=== PATIENT | female | born 1980 | race Caucasian/White ===

== ENCOUNTER 2016-12-19 08:26 | Emergency (ER) | payer OTHER ==
[~2016-12-19] VITALS: Ht 157.5 cm; Wt 83.5 kg
[~2016-12-19 08:26] MED LIST: ESOM20CA; VIT1TABL85; ZOC20
[2016-12-19 08:28] VITALS: Ht 157.5 cm; Wt 83.5 kg
[2016-12-19] MEDS ORDERED: SOD CHLORIDE 0.9% 1,000 ML IV STA (09:00)
[2016-12-19] MEDS ORDERED: morphine 4 MG/ML VIAL IV STA ×2 (09:00→10:24)
[2016-12-19] MEDS ORDERED: ONDANSETRON 4 MG INJ IV STA (09:00)
[2016-12-19 09:23] LABS: BASOPHILS % 0.2 % (0.0-2.0); EOSINOPHILS # 0.1 10^3/ul (0.0-0.5); EOSINOPHILS % 1.3 % (0.0-7.0); HEMATOCRIT 43.6 % (37.0-47.0); HEMOGLOBIN 14.9 g/dl (12.0-16.0); LYMPHOCYTES # 1.6 10^3/ul (0.8-2.9); LYMPHOCYTES % 25.1 % (15.0-51.0); MEAN CORPUSCULAR HEMOGLOBIN 32.2 pg (29.0-33.0); MEAN CORPUSCULAR HGB CONC 34.1 g/dl (32.0-37.0); MEAN CORPUSCULAR VOLUME 94.3 fl (82.0-101.0); MEAN PLATELET VOLUME 9.2 fl (7.4-10.4); MONOCYTE # 0.6 10^3/ul (0.3-0.9); MONOCYTES % 8.8 % (0.0-11.0); NEUTROPHIL # 4.2 10^3/ul (1.6-7.5); NEUTROPHILS % 64.6 % (39.0-77.0); PLATELET COUNT 182 10^3/UL (140-440); RED BLOOD COUNT 4.62 10^6/ul (4.20-5.40); RED CELL DISTRIBUTION WIDTH 12.9 % (11.5-14.5); UNCORRECTED WBC 6.4 10^3/ul (4.8-10.8); WHITE BLOOD COUNT 6.4 10^3/ul (4.8-10.8)
[2016-12-19 09:28] LABS: ALBUMIN 4.4 g/dl (3.3-4.9)
[2016-12-19 09:29] LABS: POTASSIUM 4.3 mmol/L (3.5-5.1)
[2016-12-19 09:30] LABS: CONDITION 1
[2016-12-19 09:31] LABS: ALBUMIN/GLOBULIN RATIO 1.1; BILIRUBIN,INDIRECT 0.1 mg/dl (0-1.1); BILIRUBIN,TOTAL 0.1 mg/dl (0.2-1.3); CALCIUM 9.1 mg/dl (8.4-10.2); CREATININE 0.52 mg/dl (0.44-1.00); TOTAL PROTEIN 8.4 g/dl (6.1-8.1)
[2016-12-19 09:43] LABS: ADD UMIC NO; URINE BILIRUBIN (Dip) NEGATIVE (NEGATIVE); URINE BLOOD (Dip) NEGATIVE (NEGATIVE); URINE COLOR YELLOW (YELLOW); URINE GLUCOSE (Dip) NEGATIVE (NEGATIVE); URINE KETONES (Dip) NEGATIVE (NEGATIVE); URINE LEUKOCYTE ESTERASE (Dip) NEGATIVE (NEGATIVE); URINE NITRITE (Dip) NEGATIVE (NEGATIVE); URINE TOTAL PROTEIN (Dip) NEGATIVE (NEGATIVE); URINE UROBILINOGEN (Dip) 0.2 E.U./dL (0.1-1.0)
--- NOTE | 2016-12-19 10:11 | RADRPT ---
PROCEDURE: CT Abdomen and Pelvis without contrast. CLINICAL INDICATION: Abdominal pain. TECHNIQUE: CT scan of the abdomen and pelvis without contrast was performed on a multidetector hig h-resolution CT scanner. The patient was scanned without intravenous contrast. Coronal and sagittal reformatted images were obtained from the axial source images. Images were reviewed on a high-resol [employer] PACS workstation. The total exam CTDI equals 22.1 mGy and the total exam DLP equals 1317.41 mG y-cm. One or the following dose reduction techniques were used: -Automated exposure control. -Adjustment of the mA and/or KV according to patient's size. -Use of iterative reconstruction technique. COMPARISON: None. FINDINGS: Note: The overall sensitivity of the study is lower by the fact that oral and intravenous contrast was not utilized. Lung Bases: Unremarkable. GI:. Unremarkable. Liver: Unremarkable. Gallbladder: Unremarkable. Pancreas: Unremarkable. Spleen: Unremarkablel Adrenals: Unremarkable. Kidneys: There is no evidence of nephrolithiasis, ureteral lithiasis or obstructive uropathy. Bladder: Unremarkable. Pelvic Organs: Unremarkable. Skeleton: Normal for age. Other: A normal-appearing appendix is visualized. IMPRESSION: 1. Short segment of the circumferentially thickened proximal transverse colon with very subtle stran ding in the adjacent fat with diverticula. This is suggestive of very mild acute diverticulitis. 2. No evidence of nephrolithiasis, ureteral lithiasis or obstructive uropathy. 3. Normal appearing appendix is visualized. Note: A call report was made to Sandra Coffey Pa-c on 12/19/2016 10:11:02 AM. RPTAT: [facility] Physician Mor Date Time Electronically viewed and signed by Physician Mor on 12/19/2016 10:11 JH/
[2016-12-19] MEDS ORDERED: TRAM50TA2 PO (10:27)
[2016-12-19] MEDS ORDERED: CIPR500T4 PO (10:27)
[2016-12-19] MEDS ORDERED: METR500T PO (10:27)
--- NOTE | 2016-12-19 11:13 | ERD ---
ER Documentation Chief Complaint Date/Time DATE: 12/19/16 TIME: 11:07 Chief Complaint GENERALIZED ABDOMINAL PAIN, BLOATED AND LOWER BACK PAIN X 5 DAYS HPI 36-year-old female with a past medical history of type 2 diabetes presents to the ED complaining of generalized abdominal pain that started 5 days ago. States that she did have a few episodes of diarrhea that started 5 days ago. States that there was one episode with slight streaks of blood. Reports that she had a few episodes of nonbilious nonbloody vomiting yesterday. Reports that her pain is predominantly in the right and left upper quadrants. Reports that she feels like her stomach is swollen and started to get concerned because it got really big and painful. States that she saw her primary care physician yesterday and was given metronidazole for possible diarrhea due to bacterial etiology. Denies any fever, chills, chest pain, shortness of breath, rashes. Reports that her last menses is on 12/13/16. ROS All systems reviewed and are negative except as per history of present illness. Medications Home Meds Active Scripts Tramadol HCl (Tramadol HCl) 50 Mg Tablet, 50 MG PO Q6 Y for PAIN, #20 TAB Prov:KARI BECKHAM PA-C 12/19/16 Ciprofloxacin Hcl* (Ciprofloxacin Hcl*) 500 Mg Tablet, 500 MG PO BID for 10 Days , TAB Prov:KARI BECKHAM PA-C 12/19/16 Metronidazole* (Flagyl*) 500 Mg Tablet, 500 MG PO TID for 10 Days, TAB Prov:KARI BECKHAM PA-C 12/19/16 Reported Medications Simvastatin (Simvastatin) 20 Mg Tablet 12/29/13 Esomeprazole Mag Trihydrate (Nexium) 20 Mg Capsule. 12/29/13 Vit D3/Folic Acid/B2/B6/B12 (Folgard Tablet) 1 Each Tablet 12/29/13 Allergies Allergies: Coded Allergies: No Known Allergy (Unverified , 12/19/16) PMhx/Soc History of Surgery: No Anesthesia Reaction: No Hx Neurological Disorder: No Hx Respiratory Disorders: No Hx Cardiac Disorders: No Hx Psychiatric Problems: No Hx Miscellaneous Medical Probl: Yes (dm) Hx Alcohol Use: No Hx Substance Use: No Hx Tobacco Use: No Smoking Status: Never smoker Physical Exam Vitals Vital Signs Date Time Temp Pulse Resp B/P Pulse Ox O2 Delivery O2 Flow Rate FiO2 12/19/16 08:28 98.0 98 19 138/87 98 Physical Exam Const: [id number], well-nourished. In no acute distress. Head: Atraumatic, normocephalic Eyes: Normal Conjunctiva without injection. No purulent discharge. ENT: Normal external ear, nose. Moist oropharynx without tonsillar exudates. Non -erythematous pharynx. Uvula midline. No drooling. No trismus. Neck: No cervical midline tenderness. Full range of motion. No meningismus. No cervical lymphadenopathy. No JVD. Resp: Clear to auscultation bilaterally. No wheezing, rhonchi, rales, or crackles. No accessory muscle use. No retractions. Cardio: Regular rate and rhythm. No murmurs, rubs or gallops. Abd: Soft, predominantly tender to palpation of the right and left upper quadrant, bloated/slightly distended with stretch murillo noted on abdomen. Normal bowel sounds. No palpable masses. No rebound tenderness. No guarding. Negative McBurney's point. Negative psoas sign. Negative obturator sign. Skin: No petechiae or rashes Back: No midline tenderness. No CVA tenderness. Ext: No cyanosis, or edema. Neur: Awake and alert. Normal gait. Normal coordination. Psych: Normal Mood and Affect Result Diagram: 12/19/1690112/19/16901 Results 24 hrs Laboratory Tests Test 12/19/16 09:02 Alanine Aminotransferase (ALT/SGPT) 69IU/L Albumin 4.4g/dl Albumin/Globulin Ratio 1.10 Alkaline Phosphatase 81IU/L Anion Gap 19 Aspartate Amino Transf (AST/SGOT) 48IU/L Basophils # 0.010^3/ul Basophils % 0.2% Blood Urea Nitrogen 12mg/dl Calcium Level 9.1mg/dl Carbon Dioxide Level 25mmol/L Chloride Level 106mmol/L Creatinine 0.52mg/dl Direct Bilirubin 0.00mg/dl Eosinophils # 0.110^3/ul Eosinophils % 1.3% Globulin 4.00g/dl Glucose Level 126mg/dl Hematocrit 43.6% Hemoglobin 14.9g/dl Indirect Bilirubin 0.1mg/dl Lipase 67U/L Lymphocytes # 1.610^3/ul Lymphocytes % 25.1% Mean Corpuscular Hemoglobin 32.2pg Mean Corpuscular Hemoglobin Concent 34.1g/dl Mean Corpuscular Volume 94.3fl Mean Platelet Volume 9.2fl Monocytes # 0.610^3/ul Monocytes % 8.8% Neutrophils # 4.210^3/ul Neutrophils % 64.6% Nucleated Red Blood Cells # 0.010^3/ul Nucleated Red Blood Cells % 0.0/100WBC Platelet Count 77329^3/UL Potassium Level 4.3mmol/L Red Blood Count 4.6210^6/ul Red Cell Distribution Width 12.9% Sodium Level 146mmol/L Total Bilirubin 0.1mg/dl Total Protein 8.4g/dl Urine Bilirubin NEGATIVE Urine Clarity CLEAR Urine Color YELLOW Urine Glucose NEGATIVE% Urine Hemoglobin NEGATIVE Urine Ketones NEGATIVE Urine Leukocyte Esterase NEGATIVE Urine Nitrite NEGATIVE Urine Specific Marion >=1.030 Urine Total Protein NEGATIVE Urine Urobilinogen 0.2 E.U./dL Urine pH 5.5 White Blood Count 6.410^3/ul Current Medications Medications (Trade) Dose Ordered Sig/Chastity Route PRN Reason Start Time Stop Time Status Last Admin Dose Admin Sodium Chloride (NS) 1,000 ml @ 1,000 mls/hr Q1H STAT IV 12/19/16 09:00 12/19/16 09:59 DC 12/19/16 09:10 Morphine Sulfate (morphine) 4 mg ONCE STAT IV 12/19/16 09:00 12/19/16 09:01 DC 12/19/16 09:10 Ondansetron HCl (Zofran Inj) 4 mg ONCE STAT IV 12/19/16 09:00 12/19/16 09:01 DC 12/19/16 09:10 Morphine Sulfate (morphine) 4 mg ONCE STAT IV 12/19/16 10:24 12/19/16 10:25 DC 12/19/16 10:32 Procedures/MDM 36-year-old female with no significant past medical history presents the ED complaining of abdominal pain, bloating. Patient is afebrile nontoxic appearing. Patient has normal vital signs. Patient was further worked up with CBC, CMP, lipase, UA, urine , CT of the abdomen and pelvis without contrast. Patient's pain and symptoms have improved after treatment with 8 mg IV morphine, 4 mg IV Zofran, 1 L of normal saline. CBC: No leukocytosis. No e/o of systemic infection. No e/o anemia. CMP: No e/o severe acidosis, alkalosis, renal failure, diabetic ketoacidosis, liver disease Lipase within normal limits. Urine: No leukocyte esterase, no nitrites, no hematuria. Urine : negative PROCEDURE: CT Abdomen and Pelvis without contrast. CLINICAL INDICATION: Abdominal pain. TECHNIQUE: CT scan of the abdomen and pelvis without contrast was performed on a multidetector high-resolution CT scanner. The patient was scanned without intravenous contrast. Coronal and sagittal reformatted images were obtained from the axial source images. Images were reviewed on a high-resolution PACS workstation. The total exam CTDI equals 22.1 mGy and the total exam DLP equals 1317.41 mGy-cm. One or the following dose reduction techniques were used: -Automated exposure control. -Adjustment of the mA and/or KV according to patient's size. -Use of iterative reconstruction technique. COMPARISON: None. FINDINGS: Note: The overall sensitivity of the study is lower by the fact that oral and intravenous contrast was not utilized. Lung Bases: Unremarkable. GI:. Unremarkable. Liver: Unremarkable. Gallbladder: Unremarkable. Pancreas: Unremarkable. Spleen: Unremarkablel Adrenals: Unremarkable. Kidneys: There is no evidence of nephrolithiasis, ureteral lithiasis or obstructive uropathy. Bladder: Unremarkable. Pelvic Organs: Unremarkable. Skeleton: Normal for age. Other: A normal-appearing appendix is visualized. IMPRESSION: 1. Short segment of the circumferentially thickened proximal transverse colon with very subtle stranding in the adjacent fat with diverticula. This is suggestive of very mild acute diverticulitis. 2. No evidence of nephrolithiasis, ureteral lithiasis or obstructive uropathy. 3. Normal appearing appendix is visualized. A differential diagnosis considered includes but is not limited to gastritis, GERD, peptic ulcer disease, cholecystitis, choledocholithiasis, cholangitis, pancreatitis, appendicitis, bowel obstruction, ileus, volvulus, nephrolithiasis , pyelonephritis, hepatitis, perforated viscus, diverticulitis, abdominal hernia , acute abdomen, mesenteric ischemia or other emergent conditions. Patient symptoms are likely due to the mild acute diverticulitis noted on patient's CT scan. This could be the reason for patient's pain predominantly in the right upper quadrant with diverticulitis noted on proximal transverse colon. There is no evidence of abscess, perforation, bleeding, cholecystitis, appendicitis, bowel obstruction or other emergent conditions noted. Discharge medications: Tramadol, Metronidazole, Ciprofloxacin Follow up with primary care physician in 1-2 days for referral to transmission line engineer. Instructed patient to return to the ED sooner for any worsening symptoms. Patient's questions were answered. Patient understood and agreed with discharge plan. Patient discharged stable. Departure Diagnosis: Primary Impression: Diverticulitis Diverticulitis site: unspecified part of intestinal tract Diverticulitis bleeding: without bleeding Diverticulitis complication: without perforation or abscess Qualified Code: K57.92 - Diverticulitis of intestine without perforation or abscess without bleeding, unspecified part of intestinal tract Condition: Stable Patient Instructions: Understanding Diverticulosis and Diverticulitis Referrals: [facility] YOU HAVE RECEIVED A MEDICAL SCREENING EXAM AND THE RESULTS INDICATE THAT YOU DO NOT HAVE A CONDITION THAT REQUIRES URGENT TREATMENT IN THE EMERGENCY DEPARTMENT. FURTHER EVALUATION AND TREATMENT OF YOUR CONDITION CAN WAIT UNTIL YOU ARE SEEN IN YOUR DOCTORS OFFICE WITHIN THE NEXT 1-2 DAYS. IT IS YOUR RESPONSIBILITY TO MAKE AN APPOINTMENT FOR FOLOW-UP CARE. IF YOU HAVE A PRIMARY DOCTOR --you should call your primary doctor and schedule an appointment IF YOU DO NOT HAVE A PRIMARY DOCTOR YOU CAN CALL OUR PHYSICIAN REFERRAL HOTLINE AT IF YOU CAN NOT AFFORD TO SEE A PHYSICIAN YOU CAN CHOSE FROM THE FOLLOWING [facility] [address] [facility] [facility] [address] [facility]. [facility] [address] [facility] [facility] [address] [facility] [facility] [address] [facility]. [facility]. [address] [facility]. [facility] YOU HAVE RECEIVED A MEDICAL SCREENING EXAM AND THE RESULTS INDICATE THAT YOU DO NOT HAVE A CONDITION THAT REQUIRES URGENT TREATMENT IN THE EMERGENCY DEPARTMENT. FURTHER EVALUATION AND TREATMENT OF YOUR CONDITION CAN WAIT UNTIL YOU ARE SEEN IN YOUR DOCTORS OFFICE WITHIN THE NEXT 1-2 DAYS. IT IS YOUR RESPONSIBILITY TO MAKE AN APPOINTMENT FOR FOLOW-UP CARE. IF YOU HAVE A PRIMARY DOCTOR --you should call your primary doctor and schedule and appointment IF YOU DO NOT HAVE A PRIMARY DOCTOR YOU CAN CALL OUR PHYSICIAN REFERRAL HOTLINE AT . IF YOU CAN NOT AFFORD TO SEE A PHYSICIAN YOU CAN CHOSE FROM THE FOLLOWING [facility] INSTITUTIONS: [facility] [address] [place] [address] [facility] [address] [place] [address] [facility] + [facility] [address] [place] [address] [facility] URGENT CARE/SPECIALTIES Additional Instructions: FOLLOW UP WITH YOUR PRIMARY CARE PHYSICIAN TOMORROW.Return to this facility if you are not improving as expected. KARI BECKHAM PA-C Dec 19, 2016 11:13
== END 2016-12-19 11:16 | disposition home or self-care (01) ==
LOC: FTE 08:26
DX: K57.92 Diverticulitis of intestine, part unspecified, without perforation or abscess without bleeding (principal); R11.10 Vomiting, unspecified; E11.9 Type 2 diabetes mellitus without complications
CPT/HCPCS: 36415; 74176; 80053; 81003; 83690; 85025; 96374; 96375; 96376; J2270; J2405; J7030; Z7502

== ENCOUNTER 2018-02-05 07:52 | Emergency (ER) | END 2018-02-05 09:21 | disposition home or self-care (01) ==